=== PATIENT | male | born 1975 | race Caucasian/White ===

== ENCOUNTER 2021-09-22 20:04 | Emergency (ER) | payer MEDICAID | END 2021-09-22 22:22 | disposition home or self-care (01) | LOC: ER1 20:04 | DX: J02.9 Acute pharyngitis, unspecified (principal); R51.9 Headache, unspecified; Z20.822 Contact with and (suspected) exposure to COVID-19; E78.5 Hyperlipidemia, unspecified; I10 Essential (primary) hypertension; F17.210 Nicotine dependence, cigarettes, uncomplicated; Z88.0 Allergy status to penicillin | CPT/HCPCS: 0240U; 71046; 87081; 87880; 99283 ==

== ENCOUNTER 2021-09-26 12:19 | Emergency (ER) | payer OTHER ==
[2021-09-26 13:28] LABS: HEMOGLOBIN 13.5 gm/dl (14.0-17.5); RED BLOOD COUNT 4.34 M/UL (4.20-5.50); WHITE BLOOD COUNT 10.8 K/UL (4.5-11.0)
[2021-09-26 13:52] LABS: BUN/CREATININE RATIO 16 (0-10)
[2021-09-26] MEDS ORDERED: FLONASE 0.05% N16 GM (14:56)
[2021-09-26] MEDS ORDERED: ZITHROMAX250 MG PO (14:56)
[2021-09-26] MEDS ORDERED: ZOFRAN 4 MG TAB4 MG PO (14:56)
[2021-09-26] MEDS ORDERED: MUCINEX600 MG PO (14:56)
== END 2021-09-26 15:25 | disposition home or self-care (01) ==
LOC: ER1 12:19
PROVIDERS: Emergency Medicine
DX: J06.9 Acute upper respiratory infection, unspecified (principal); Z20.822 Contact with and (suspected) exposure to COVID-19; F17.210 Nicotine dependence, cigarettes, uncomplicated
CPT/HCPCS: 0240U; 71045; 80053; 85025; 96361; 96374; 99283; J2405

== ENCOUNTER 2021-10-15 10:38 | Emergency (ER) | payer OTHER ==
[~2021-10-15 10:38] MED LIST: FLONASE 0.05% N16 GM; MUCINEX600 MG PO; ZITHROMAX250 MG PO; ZOFRAN 4 MG TAB4 MG PO
== END 2021-10-15 12:10 | disposition home or self-care (01) ==
LOC: ER1 10:38
DX: J06.9 Acute upper respiratory infection, unspecified (principal); I10 Essential (primary) hypertension; F17.210 Nicotine dependence, cigarettes, uncomplicated; Z88.0 Allergy status to penicillin; Z20.822 Contact with and (suspected) exposure to COVID-19
CPT/HCPCS: 0240U; 87081; 87880; 99284